=== PATIENT | male | born 1985 | race Caucasian/White ===

== ENCOUNTER 2022-05-10 15:45 | Outpatient (CLI) | payer BC, SELFPAY | END 2022-05-10 15:46 | disposition home or self-care (01) | LOC: NFLDREF 05-13 06:08 | PROVIDERS: PCP Family Medicine; Visit Provider Family Medicine | DX: Z13.6 Encounter for screening for cardiovascular disorders (principal); Z13.0 Encounter for screening for diseases of the blood and blood-forming organs and certain disorders involving the immune mechanism | CPT/HCPCS: 80061 ==

== ENCOUNTER 2022-05-12 14:57 | Outpatient (CLI) | payer BC, SELFPAY ==
--- NOTE | 2022-05-12 15:30 | MR_ITS ---
[address] [address] Phone:?[phone] Fax:?[phone] Referring Physician Information: Rudi Briggs M.D. [address] [facility] [address] Phone:?[phone] Fax:?[phone] Patient:Celestino Clemens D.O.B:?1985 Sex:?Male Phone:?[phone] [facility] MRN:?[id number] Exam Date:?05/12/2022 ? EXAM: MRI OF THE RIGHT ANKLE WITHOUT CONTRAST CLINICAL INFORMATION: Male, 37 years old, with right ankle pain. INDICATION: Evaluate ankle pain. PRIOR SURGERY: None reported. PLAIN FILMS: Ankle radiographs dated 04/23/2022. COMPARISONS: No prior MRIs available. TECHNICAL INFORMATION: Using a 1.5T MR scanner and a localizing surface coil: sagittals: PD, T2, STIR coronals: PD, T2 axials: PD, T2 SEDATION: None. CONTRAST: None. FINDINGS: Osseous structures: No stress/occult fracture or other marrow edema/pathology. Os trigonum: Approximately 1.6 x 0.9 cm os trigonum, with mild reactive osseous changes along the synchondrosis. Tarsal coalition: No calcaneonavicular, talocalcaneal or cubonavicular coalition. Tibiotalar joint: Effusion: Large tibiotalar joint effusion. Ganglion cyst: None. Osteochondral surfaces: Mild generalized thinning of the articular cartilage throughout the tibiotalar joint, with mild/moderate anterior marginal osteophytosis (sagittal PD series 6 image 14). Loose bodies: Approximately 5-10 ossific intra-articular bodies are present throughout the TMT joints, the largest of which measures 12 x 12 x 9 mm (coronal PD series 8 image 11 and sagittal PD series 6 image 15). Subtalar joint: Effusion: Small subtalar joint effusion. Articular cartilage: No osteochondral abnormality. Tarsal joints: Talonavicular: Unremarkable. Calcaneocuboid: Unremarkable. Naviculocuneiform: Unremarkable. Tarsometatarsal: Unremarkable. Ligaments: Syndesmotic ligaments:?Moderate attenuation and irregularity of the anterior inferior tibiofibular syndesmotic ligament (axial PD series 3 images 6-11). The posterior inferior tibiofibular syndesmotic ligament is intact. However, there is no widening of the distal tibiofibular syndesmosis or asymmetry of the medial/lateral ankle gutter. Lateral ligaments:?Marked attenuation and irregularity of the anterior talofibular and calcaneofibular ligaments (axial PD series 3 images 14-20). Deltoid ligament:?The visualized components of the superficial and deep deltoid ligament, specifically the tibiospring and posterior tibiotalar ligaments, are intact. Calcaneonavicular spring ligament:?The superomedial component of the calcaneonavicular spring ligament is grossly intact. Bifurcate and calcaneocuboid ligaments:?Intact lateral calcaneonavicular and medial calcaneocuboid ligaments. The dorsolateral calcaneocuboid ligament is intact. Tendons: Peroneal:?The peroneal tendons are appropriately situated within the retromalleolar groove and the superior peroneal retinaculum is intact. Normal thickness and signal intensity without tendinopathy, tenosynovitis, or split/tear. Flexor tendons:?The posterior tibialis, flexor digitorum and flexor hallucis longus tendons are intact. No significant tendinopathy and without tenosynovitis, tendon split or tendon disruption. Extensor tendons:?The anterior tibialis, extensor digitorum longus, and extensor hallucis longus tendons are intact. No significant tendinopathy and without tenosynovitis, tendon split or tendon disruption. Achilles:?Intact, without tendinopathy or tear. No retrocalcaneal or retro- Achilles bursitis. Sinus tarsi:?The sinus tarsi signal is normal. Plantar aponeurosis: There is no abnormal thickening of, abnormal intrasubstance signal involving, or perifascial edema about the plantar aponeurosis. Specifically, the plantar fascia origin appears normal in signal intensity and morphology. Plantar musculature:?The intrinsic foot musculature is normal in bulk and signal intensity without evidence of denervation atrophy. Neurovascular structures and tarsal tunnel: The posterior tibial neurovascular structures appear unremarkable coursing past the ankle and through the tarsal tunnel. IMPRESSION: 1. Chronic sequela of a high-grade lateral ligamentous sprain injury. 2. Chronic sequelae [id number] sprain of the anterior inferior tibiofibular syndesmotic ligament. However, there is no widening of the distal tibiofibular syndesmosis. 3. Mild-moderate osteoarthritis of the tibiotalar joint with multiple (approximately 5-10) ossific intra-articular bodies, the largest of which measures 12 x 12 x 9 mm. This is associated with a large joint effusion. 4. Medium-sized os trigonum, with mild reactive osseous changes along the synchondrosis. This could reflect any clinical evidence of posterior impingement. 5. No myotendinous abnormality. 6. No acute fracture or osseous stress reaction. BC Electronically signed on 05/13/2022 8:26:00 AM by Td Nye M.D.
== END 2022-05-12 14:58 | disposition home or self-care (01) ==
LOC: MRI 14:57
PROVIDERS: PCP Family Medicine; Visit Provider Family Medicine
DX: M25.571 Pain in right ankle and joints of right foot (principal); S93.411A Sprain of calcaneofibular ligament of right ankle, initial encounter; M19.071 Primary osteoarthritis, right ankle and foot; M25.471 Effusion, right ankle
CPT/HCPCS: 73721

== ENCOUNTER 2022-05-21 12:24 | Outpatient (CLI) | payer BC, SELFPAY ==
[2022-05-21 13:17] LABS: SARS Antigen* negative (Negative)
== END 2022-05-21 12:25 | disposition home or self-care (01) ==
LOC: OP CLINIC 12:26
PROVIDERS: PCP Family Medicine; Visit Provider Internal Medicine
DX: Z12.11 Encounter for screening for malignant neoplasm of colon (principal); Z83.71 Family history of colonic polyps
CPT/HCPCS: 45378; 87426; J2250; J3010